=== PATIENT | female | born 2000 | race Two or more races ===

== ENCOUNTER → 2024-02-29 07:47 | Outpatient (REF) | payer OTHER, SELFPAY | LOC: WDC 07:47 | PROVIDERS: ATTENDING PHYSICIAN Student in an Organized Health Care Education/Training Program; FAMILY PHYSICIAN Nurse Practitioner Family | DX: N64.4 Mastodynia (principal) | CPT/HCPCS: 76642 ==

== ENCOUNTER 2024-11-07 09:11 | Observation (INO) | payer OTHER, SELFPAY ==
[2024-11-07 10:09] VITALS: BP 142/76; BMI 38.3
[2024-11-07 10:30] LABS: Urine Character Clear (Clear)
[2024-11-07 10:50] LABS: ALT (SGPT) 20 U/L (0-35); AST (SGOT) 21 U/L (14-36); Albumin 3.8 g/dl (3.5-5.0); Alkaline Phosphatase 137 U/L (38-126); Blood Urea Nitrogen 5 mg/dl (7-17); Calcium 9.3 mg/dl (8.4-10.2); Carbon Dioxide 23 mmol/L (22-30); Chloride 105 mmol/L (98-107); Estimated Creatinine Clearance > 125 ml/min; Glucose 79 mg/dl (70-99); Potassium 4.0 mmol/L (3.5-5.1); Sodium 134 mmol/L (135-145); Total Protein 6.3 g/dl (6.3-8.2); eGFR > 60.00
[2024-11-07 11:41] LABS: Hematocrit 41.5 % (37.0-47.0); Hemoglobin 14.4 g/dL (12.0-16.0); Mean Corp Hgb Conc. 34.7 g/dL (33.0-37.0); Mean Corpuscular Volume 88.3 fL (81.0-99.0); Nucleated Red Blood Cells % 0 %; Platelet Count 198 10^3/uL (130-400); Red Cell Dist. Width 14.0 % (11.5-14.5)
== END 2024-11-07 12:33 | disposition home or self-care (01) ==
LOC: PNTC-IN 09:11
PROVIDERS: ADMITTING PHYSICIAN Obstetrics & Gynecology
DX: O13.3 Gestational [pregnancy-induced] hypertension without significant proteinuria, third trimester (principal); O99.213 Obesity complicating pregnancy, third trimester; O43.893 Other placental disorders, third trimester; O43.193 Other malformation of placenta, third trimester
CPT/HCPCS: 59025; 76816; 80053; 81003; 82570; 84156; 85025; G0378

== ENCOUNTER 2024-11-13 19:36 | Inpatient (IN) | payer OTHER, SELFPAY ==
[2024-11-13 19:57] VITALS: BP 131/96; BMI 37.6
[2024-11-13 20:19] LABS: Hematocrit 40.9 % (37.0-47.0); Hemoglobin 14.2 g/dL (12.0-16.0); Mean Corp Hgb Conc. 34.7 g/dL (33.0-37.0); Mean Corpuscular Volume 85.2 fL (81.0-99.0); Nucleated Red Blood Cells % 0 %; Platelet Count 211 10^3/uL (130-400); Red Cell Dist. Width 13.7 % (11.5-14.5)
[2024-11-13 21:52] LABS: Urine Character Clear (Clear)
[2024-11-13 22:07] LABS: ALT (SGPT) 20 U/L (0-35); AST (SGOT) 22 U/L (14-36); Albumin 3.7 g/dl (3.5-5.0); Alkaline Phosphatase 136 U/L (38-126); Blood Urea Nitrogen 7 mg/dl (7-17); Calcium 9.7 mg/dl (8.4-10.2); Carbon Dioxide 23 mmol/L (22-30); Chloride 106 mmol/L (98-107); Estimated Creatinine Clearance > 125 ml/min; Glucose 113 mg/dl (70-99); Potassium 3.9 mmol/L (3.5-5.1); Sodium 135 mmol/L (135-145); Total Protein 6.3 g/dl (6.3-8.2); eGFR > 60.00
[2024-11-13] MEDS: CYTOTEC 25 MICROGRAM VAG (22:26)
[2024-11-14] MEDS: LR 1000 IV ×3 (00:22→11:53)
[2024-11-14] MEDS: BRETHINE 250 MCG SC (00:58)
[2024-11-14] MEDS: CYTOTEC PO ×4 (02:00→21:56)
[2024-11-14] MEDS: STADOL 1 MG IV ×2 (03:50→11:54)
[2024-11-14 05:33] LABS: Hematocrit 40.4 % (37.0-47.0); Hemoglobin 14.2 g/dL (12.0-16.0); Mean Corp Hgb Conc. 35.1 g/dL (33.0-37.0); Mean Corpuscular Volume 86.7 fL (81.0-99.0); Nucleated Red Blood Cells % 0 %; Platelet Count 201 10^3/uL (130-400); Red Cell Dist. Width 14.0 % (11.5-14.5)
[2024-11-14 05:56] LABS: ALT (SGPT) 20 U/L (0-35); AST (SGOT) 20 U/L (14-36); Albumin 3.6 g/dl (3.5-5.0); Alkaline Phosphatase 139 U/L (38-126); Blood Urea Nitrogen 5 mg/dl (7-17); Calcium 9.4 mg/dl (8.4-10.2); Carbon Dioxide 23 mmol/L (22-30); Chloride 107 mmol/L (98-107); Estimated Creatinine Clearance > 125 ml/min; Glucose 95 mg/dl (70-99); Potassium 4.3 mmol/L (3.5-5.1); Sodium 135 mmol/L (135-145); Total Protein 6.3 g/dl (6.3-8.2); eGFR > 60.00
[2024-11-14] MEDS: CYTOTEC 50 MICROGRAM PO (06:07)
[2024-11-14] MEDS: PITOCIN 30 UNITS/NSS 500 ML IV (11:55)
[2024-11-14] MEDS: FENTANYL/BUPIVACAINE 100 EPIDURAL (14:40)
[2024-11-14] MEDS: SUBLIMAZE 100 MCG EPIDURAL (14:40)
[2024-11-14] MEDS: TUMS CHEWABLE TABLET 400 MG PO (15:04)
[2024-11-14] MEDS: TRANEXAMIC ACID 100 IV (19:23)
[2024-11-14] MEDS: METHERGINE INJECTION 0.2 MG IM (19:30)
[2024-11-14] MEDS: CYTOTEC 800 MCG SL (19:34)
[2024-11-14] MEDS: HEMABATE 250 MCG IM (19:36)
[2024-11-14 19:55] LABS: Hematocrit 32.8 % (37.0-47.0); Hemoglobin 11.4 g/dL (12.0-16.0); Mean Corp Hgb Conc. 34.8 g/dL (33.0-37.0); Mean Corpuscular Volume 86.8 fL (81.0-99.0); Nucleated Red Blood Cells % 0 %; Platelet Count 175 10^3/uL (130-400); Red Cell Dist. Width 13.8 % (11.5-14.5)
[2024-11-14 20:14] LABS: INR 0.89; PT 12.6 Sec (11.4-14.6)
[2024-11-14 20:15] LABS: APTT 23.3 Sec (23.4-35.0)
[2024-11-14 20:23] LABS: ALT (SGPT) 18 U/L (0-35); AST (SGOT) 22 U/L (14-36); Albumin 3.2 g/dl (3.5-5.0); Alkaline Phosphatase 136 U/L (38-126); Blood Urea Nitrogen 4 mg/dl (7-17); Calcium 9.6 mg/dl (8.4-10.2); Carbon Dioxide 21 mmol/L (22-30); Chloride 109 mmol/L (98-107); Estimated Creatinine Clearance > 125 ml/min; Glucose 86 mg/dl (70-99); Potassium 4.0 mmol/L (3.5-5.1); Sodium 135 mmol/L (135-145); Total Protein 5.6 g/dl (6.3-8.2); eGFR > 60.00
[2024-11-14 20:27] LABS: Fibrinogen 549 MG/DL (199-459)
[2024-11-14] MEDS: PEPCID 20 MG IV (21:55)
[2024-11-14] MEDS: PRENATAL PLUS PO (21:56)
[2024-11-15] MEDS: PRENATAL PLUS PO (00:14)
[2024-11-15] MEDS: COLACE PO ×3 (07:34→20:31)
[2024-11-15] MEDS: TYLENOL 650 MG PO ×3 (07:34→22:35)
[2024-11-15 07:52] LABS: Hematocrit 33.8 % (37.0-47.0); Hemoglobin 12.0 g/dL (12.0-16.0)
[2024-11-15] MEDS: PRENATAL PLUS 1 TABLET PO (22:35)
[2024-11-16] MEDS: COLACE 100 MG PO (08:22)
[2024-11-16] MEDS: M-M-R II 0.5 ML SC (10:01)
[2024-11-16 14:49] LABS: Syphilis/T. pallidum Ab Reflex Negative (Negative)
== END 2024-11-16 11:00 | disposition home or self-care (01) | DRG 768 ==
LOC: LDRP 19:36
PROVIDERS: Obstetrics & Gynecology; Student in an Organized Health Care Education/Training Program; ADMITTING PHYSICIAN Obstetrics & Gynecology; FAMILY PHYSICIAN Nurse Practitioner Family
PROC: 0U7C7DJ Dilation of Cervix with Intraluminal Device, Temporary, Via Natural or Artificial Opening (ICD-10-PCS; 2024-11-13)
PROC: 3E0P7VZ Introduction of Hormone into Female Reproductive, Via Natural or Artificial Opening (ICD-10-PCS; 2024-11-13)
PROC: 0KQM0ZZ Repair Perineum Muscle, Open Approach (ICD-10-PCS; 2024-11-14)
PROC: 30233N1 Transfusion of Nonautologous Red Blood Cells into Peripheral Vein, Percutaneous Approach (ICD-10-PCS; 2024-11-14)
PROC: 10907ZC Drainage of Amniotic Fluid, Therapeutic from Products of Conception, Via Natural or Artificial Opening (ICD-10-PCS; 2024-11-14)
PROC: 10E0XZZ Delivery of Products of Conception, External Approach (ICD-10-PCS; 2024-11-14)
PROC: 3E033VJ Introduction of Other Hormone into Peripheral Vein, Percutaneous Approach (ICD-10-PCS; 2024-11-14)
PROC: 0W3R7ZZ Control Bleeding in Genitourinary Tract, Via Natural or Artificial Opening (ICD-10-PCS; 2024-11-14)
PROC: 3E0134Z Introduction of Serum, Toxoid and Vaccine into Subcutaneous Tissue, Percutaneous Approach (ICD-10-PCS; 2024-11-16)
DX: O14.04 Mild to moderate pre-eclampsia, complicating childbirth (principal); Z37.0 Single live birth; O69.81X0 Labor and delivery complicated by cord around neck, without compression, not applicable or unspecified; Z3A.37 37 weeks gestation of pregnancy; O72.1 Other immediate postpartum hemorrhage; O70.1 Second degree perineal laceration during delivery; O99.284 Endocrine, nutritional and metabolic diseases complicating childbirth; E28.2 Polycystic ovarian syndrome; O99.214 Obesity complicating childbirth; O34.13 Maternal care for benign tumor of corpus uteri, third trimester; D25.9 Leiomyoma of uterus, unspecified; Z23 Encounter for immunization; Z79.82 Long term (current) use of aspirin
CPT/HCPCS: 36415; 80053; 81003; 82570; 84156; 85014; 85018; 85025; 85384; 85610; 85730; 86780; 86850; 86900; 86901; 86920; 88307; 90707; P9016